=== PATIENT | female | born 1990 | race African-American/Black ===

== ENCOUNTER → 2021-06-22 | Outpatient (CLI) | payer OTHER ==
--- NOTE | 2021-06-22 15:50 | RAD ---
EXAM: Pelvic ultrasound HISTORY: Menorrhagia, pelvic pain. COMPARISON: None. FINDINGS: Sonographic evaluation of the pelvis was performed transabdominally and transvaginally. Vis ualization was limited by habitus. The uterus is anteverted and measures 8.7 x 4.6 x 4.0 cm. The endometrial stripe measures 3 mm. A sub serosal fibroid anteriorly measures 1.8 x 1.4 cm. There is no significant free fluid. The right ovary measures 2.6 x 2.3 x 1.4 cm. The left ovary measures 3.7 x 2.5 x 2.0 cm. There is nor mal Doppler flow bilaterally. There are no suspicious lesions. IMPRESSION: 1. 1.8 cm subserosal fibroid anteriorly. Normal endometrial thickness. Electronically signed by: Dana Ramirez MD (06/22/2021 3:47 PM) [id number]
== END ==
LOC: US 12:15
PROVIDERS: ATTEND Registered Nurse
DX: D25.2 Subserosal leiomyoma of uterus (principal); N85.4 Malposition of uterus; N92.1 Excessive and frequent menstruation with irregular cycle
CPT/HCPCS: 76830; 76856